=== PATIENT | female | born 1990 | race Caucasian/White ===

== ENCOUNTER 2018-03-20 08:03 | Day surgery (SDC) | payer MEDICAID ==
[2018-03-20] MEDS ORDERED: METOCLOPRAMIDE 10 MG INJ IV (09:00)
[2018-03-20] MEDS ORDERED: ALBUTEROL 0.083% (NEB) 2.5 MG/3 ML AMP HHN (09:00)
[2018-03-20] MEDS ORDERED: MEPERIDINE 25 MG INJ IV (09:00)
[2018-03-20] MEDS ORDERED: DIPHENHYDRAMINE 50 MG INJ IV (09:00)
[2018-03-20] MEDS ORDERED: FENTAnyl 50 MCG/ML VIAL IV ×3 (09:00)
[2018-03-20] MEDS ORDERED: HYDROmorphONE 1 MG/5 ML IV SYRINGE IV ×2 (09:00)
[2018-03-20 09:06] LABS: ADD MAN DIFF? NO
[2018-03-20 09:08] LABS: WHITE BLOOD COUNT 11.6 10^3/ul (4.8-10.8)
[2018-03-20 09:08] LABS: BASOPHIL # 0.1 10^3/ul (0.0-0.1); BASOPHILS % 0.6 % (0.0-2.0); EOSINOPHILS # 0.2 10^3/ul (0.0-0.5); EOSINOPHILS % 1.9 % (0.0-7.0); HEMATOCRIT 29.3 % (37.0-47.0); HEMOGLOBIN 8.9 g/dl (12.0-16.0); LYMPHOCYTES # 2.9 10^3/ul (0.8-2.9); MEAN CORPUSCULAR HEMOGLOBIN 27.6 pg (29.0-33.0); MEAN CORPUSCULAR HGB CONC 30.4 g/dl (32.0-37.0); MEAN PLATELET VOLUME 11.3 fl (7.4-10.4); MONOCYTE # 0.5 10^3/ul (0.3-0.9); MONOCYTES % 4.7 % (0.0-11.0); NEUTROPHIL # 7.8 10^3/ul (1.6-7.5); NEUTROPHILS % 67.1 % (39.0-77.0); NUCLEATED RED BLOOD CELLS # 0.1 10^3/ul (0.0-0.0); NUCLEATED RED BLOOD CELLS% 0.4 /100WBC (0.0-0.0); PLATELET COUNT 381 10^3/UL (140-415); RED BLOOD COUNT 3.22 10^6/ul (4.20-5.40); RED CELL DISTRIBUTION WIDTH 14.4 % (11.5-14.5)
[2018-03-20 09:12] LABS: HOLD TRANSMISSIONS 1
[2018-03-20] MEDS ORDERED: FENTAnyl 50 MCG/ML VIAL (09:25)
[2018-03-20 09:27] LABS: INR 0.95; PROTIME 12.8 Sec (11.9-14.9)
[2018-03-20] MEDS ORDERED: ROCURONIUM 50 MG INJ (09:27)
[2018-03-20] MEDS ORDERED: SUCCINYLCHOLINE CHLORIDE 100 MG/5 ML SYG IV (09:27)
[2018-03-20] MEDS ORDERED: PROPOFOL 20 ML (09:27)
[2018-03-20] MEDS ORDERED: LIDOCAINE 100 MG SYRINGE (09:27)
[2018-03-20 09:28] LABS: PARTIAL THROMBOPLASTIN TIME 26.4 Sec (23.0-35.0)
[2018-03-20] MEDS ORDERED: SUGAMMADEX SODIUM 200 MG/2 ML VIAL IV (09:28)
[2018-03-20] MEDS: HYDROmorphONE 1 MG/5 ML IV SYRINGE IV (10:17)
[2018-03-20] MEDS: ONDANSETRON 4 MG INJ IV (11:16)
== END 2018-03-20 12:05 | disposition home or self-care (01) ==
LOC: SDS 08:03
DX: N93.9 Abnormal uterine and vaginal bleeding, unspecified (principal); N84.0 Polyp of corpus uteri
CPT/HCPCS: 58558; 85025; 85610; 85730; 88305